=== PATIENT | female | born 1995 | race Caucasian/White ===

== ENCOUNTER 2016-12-25 23:44 | Emergency (ER) | payer SELFPAY ==
--- NOTE | 2016-12-26 03:08 | ED CLINICAL REPORT ---
Clinical Report - Physicians/Mid Levels [facility] [address] [place] [address] 12/25/2016 23:46 Patient: RAJWINDER MANRIQUE Time Seen: 00:26 Dec 26 2016. Arrived- By private vehicle. Historian- patient. CPT: ER phys charges level 3 plus (#[id number]). Abscess complicated I&D (#122121). HISTORY OF PRESENT ILLNESS Chief Complaint: SKIN RASH and BOIL. 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 ( left toe abscess being treated with oral abx for 2 days, getting worse. and 3 small abscess on buttocks). It is described as painful. It has been located on the right buttocks (2 small ones that she drained at home. They are better since being on the antibiotics.). No cause has been identified. Similar symptoms previously: Recent medical care: Not recently seen/assessed. REVIEW OF SYSTEMS No fever, chills, cough, difficulty breathing or enlarged lymph nodes. No chest pain, abdominal pain, joint pain or vomiting. All systems otherwise negative, except as recorded above. PAST HISTORY See nurses notes. Additional Surgeries: no known surgeries. Medications: Sulfamethoxazole-TMP DS Oral (Tablet 800-160 mg) 1 tablet, BID. Cephalexin Oral (Capsule 500 mg) 1 capsule, 4x a day. Allergies: No Known Drug Allergy. SOCIAL HISTORY Heavy tobacco smoker (cigarette)- less than 1 pack per day. ADDITIONAL NOTES The nursing notes have been reviewed. PHYSICAL EXAM Vital Signs: 12/25/2016 23:55 BP: 118/70. HR: 94. RR: 16. O2 saturation: 98%. Temp: 98.3 F. Pain level now: 9/10. Appearance: Alert. Patient in mild distress. Eyes: Pupils equal, round and reactive to light. Conjunctivae and eyelids normal. ENT: Ears normal. Nose normal. Pharynx normal. Neck: Neck supple. CVS: Normal heart rate and rhythm. Heart sounds normal. Normal rhythm. Respiratory: No respiratory distress. Breath sounds normal. Chest nontender. Abdomen: Nontender. Skin: Single small abscess to left buttock (x 3: resolving). No fluctuance or pointing. (left fourth toe with abscess plantar aspect.). Extremities: Extremities nontender. Neuro: Oriented X 3. No motor deficit. No sensory deficit. LABS, X-RAYS, AND EKG Laboratory Tests: Culture, Wound Deep: (SUBHASH: 12/26/2016 03:00) ( MsgRcvd 12/28/2016 10:59) IP SPECIMEN DESCRIPTION: SWAB Test Result Flag Units (Reference) GRAM STAIN, WOUND, DEEP EPITHELIAL CELLS: NONE NO ORGANISMS SEEN: NO ORGANISMS SEEN WHITE BLOOD CELLS: MANY CULTURE, WOUND DEEP, AEROBIC DATE: 12/28/16 PRELIM REPORT: FINAL REPORT -- MRSA GROWTH: SCANT GROWTH -- NSF GROWTH: SCANT GROWTH ID AND SENS TO FOLLOW: NO FURTHER WORKUP AMOXICILLIN/CLAVULANATE AMPICILLIN AMPICILLIN/SULBACTAM CEFAZOLIN CEFTRIAXONE CEPHALOTHIN CIPROFLOXACIN R CLINDAMYCIN S DAPTOMYCIN S ERYTHROMYCIN R GENTAMICIN S LEVOFLOXACIN I LINEZOLID S NITROFURANTOIN OXACILLIN R PENICILLIN TRIMETHOPRIM/SULFAMETHOXAZOLE S VANCOMYCIN S GENTAMICIN SYNERGY SCREEN CULTURE, ANAEROBIC, WOUND DEEP DATE: 12/28/16 NO ANAEROBIC GROWTH AT:: NO ANAEROBES ISOLATED AT 2 DAYS PRELIM REPORT: FINAL REPORT . PROGRESS AND PROCEDURES Incision & Drainage of Abscess: The abscess is located in the left fourth toe(s). The risks of the procedure, benefits and alternatives were explained. Consent was obtained. Local anesthesia provided using 2% lidocaine with bicarb. Skin cleansed with Betadine. The abscess was incised with a #11 surgical blade. A moderate amount of pus was drained. Cavity was irrigated with saline and packed with gauze. Sample obtained for cultures and gram stain. A dressing was applied. Estimated blood loss: 1 mL. Course of Care: Pt requests sedative before trying to I&D the toe. Xanax 0.25 mg po Vancomycin 25 mg /kg IV Pt went to [facility] for prolonged period and came out saying she was itchy. Benadryl 25 mg IV. Better. Patient/family counseled. Disposition: Discharged. Condition: stable and improved. CLINICAL IMPRESSION Single deep abscess to the left foot with incision and drainage. INSTRUCTIONS Protect wound and keep wound area clean. Leave dressing in place until seen in follow-up. (Hot pack abscesses on the buttocks.). Warnings: Further evaluation is necessary. SEDATIVE MEDICATION: You were given sedative medication during your visit. Do not drive or operate dangerous machinery. GENERAL WARNINGS: Return or contact your physician immediately if your condition worsens or changes unexpectedly, if not improving as expected, or if other problems arise. Your Current Medications: CONTINUE TAKING THE FOLLOWING MEDICATIONS: Cephalexin Oral : Capsule 500 mg, 1 capsule 4x a day. Sulfamethoxazole-TMP DS Oral : Tablet 800-160 mg, 1 tablet BID. Follow-up: Follow up with your doctor in two days. Call for the next available appointment. Understanding of the discharge instructions verbalized by patient. (Electronically signed by Barrera Sotomayor MD 12/28/2016 23:34)
--- NOTE | 2016-12-26 03:08 | ED CLINICAL REPORT ---
Clinical Report - Physicians/Mid Levels [facility] [address] [place] [address] 12/25/2016 23:46 Patient: RAJWINDER MANRIQUE Time Seen: 00:26 Dec 26 2016. Arrived- By private vehicle. Historian- patient. CPT: ER phys charges level 3 plus (#[id number]). Abscess complicated I&D (#503102). HISTORY OF PRESENT ILLNESS Chief Complaint: SKIN RASH and BOIL. 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 ( left toe abscess being treated with oral abx for 2 days, getting worse. and 3 small abscess on buttocks). It is described as painful. It has been located on the right buttocks (2 small ones that she drained at home. They are better since being on the antibiotics.). No cause has been identified. Similar symptoms previously: Recent medical care: Not recently seen/assessed. REVIEW OF SYSTEMS No fever, chills, cough, difficulty breathing or enlarged lymph nodes. No chest pain, abdominal pain, joint pain or vomiting. All systems otherwise negative, except as recorded above. PAST HISTORY See nurses notes. Additional Surgeries: no known surgeries. Medications: Sulfamethoxazole-TMP DS Oral (Tablet 800-160 mg) 1 tablet, BID. Cephalexin Oral (Capsule 500 mg) 1 capsule, 4x a day. Allergies: No Known Drug Allergy. SOCIAL HISTORY Heavy tobacco smoker (cigarette)- less than 1 pack per day. ADDITIONAL NOTES The nursing notes have been reviewed. PHYSICAL EXAM Vital Signs: 12/25/2016 23:55 BP: 118/70. HR: 94. RR: 16. O2 saturation: 98%. Temp: 98.3 F. Pain level now: 9/10. Appearance: Alert. Patient in mild distress. Eyes: Pupils equal, round and reactive to light. Conjunctivae and eyelids normal. ENT: Ears normal. Nose normal. Pharynx normal. Neck: Neck supple. CVS: Normal heart rate and rhythm. Heart sounds normal. Normal rhythm. Respiratory: No respiratory distress. Breath sounds normal. Chest nontender. Abdomen: Nontender. Skin: Single small abscess to left buttock (x 3: resolving). No fluctuance or pointing. (left fourth toe with abscess plantar aspect.). Extremities: Extremities nontender. Neuro: Oriented X 3. No motor deficit. No sensory deficit. LABS, X-RAYS, AND EKG Laboratory Tests: Culture, Wound Deep: (SUBHASH: 12/26/2016 03:00) ( MsgRcvd 12/28/2016 10:59) IP SPECIMEN DESCRIPTION: SWAB Test Result Flag Units (Reference) GRAM STAIN, WOUND, DEEP EPITHELIAL CELLS: NONE NO ORGANISMS SEEN: NO ORGANISMS SEEN WHITE BLOOD CELLS: MANY CULTURE, WOUND DEEP, AEROBIC DATE: 12/28/16 PRELIM REPORT: FINAL REPORT -- MRSA GROWTH: SCANT GROWTH -- NSF GROWTH: SCANT GROWTH ID AND SENS TO FOLLOW: NO FURTHER WORKUP AMOXICILLIN/CLAVULANATE AMPICILLIN AMPICILLIN/SULBACTAM CEFAZOLIN CEFTRIAXONE CEPHALOTHIN CIPROFLOXACIN R CLINDAMYCIN S DAPTOMYCIN S ERYTHROMYCIN R GENTAMICIN S LEVOFLOXACIN I LINEZOLID S NITROFURANTOIN OXACILLIN R PENICILLIN TRIMETHOPRIM/SULFAMETHOXAZOLE S VANCOMYCIN S GENTAMICIN SYNERGY SCREEN CULTURE, ANAEROBIC, WOUND DEEP DATE: 12/28/16 NO ANAEROBIC GROWTH AT:: NO ANAEROBES ISOLATED AT 2 DAYS PRELIM REPORT: FINAL REPORT . PROGRESS AND PROCEDURES Incision & Drainage of Abscess: The abscess is located in the left fourth toe(s). The risks of the procedure, benefits and alternatives were explained. Consent was obtained. Local anesthesia provided using 2% lidocaine with bicarb. Skin cleansed with Betadine. The abscess was incised with a #11 surgical blade. A moderate amount of pus was drained. Cavity was irrigated with saline and packed with gauze. Sample obtained for cultures and gram stain. A dressing was applied. Estimated blood loss: 1 mL. Course of Care: Pt requests sedative before trying to I&D the toe. Xanax 0.25 mg po Vancomycin 25 mg /kg IV Pt went to [facility] for prolonged period and came out saying she was itchy. Benadryl 25 mg IV. Better. Patient/family counseled. Disposition: Discharged. Condition: stable and improved. CLINICAL IMPRESSION Single deep abscess to the left foot with incision and drainage. INSTRUCTIONS Protect wound and keep wound area clean. Leave dressing in place until seen in follow-up. (Hot pack abscesses on the buttocks.). Warnings: Further evaluation is necessary. SEDATIVE MEDICATION: You were given sedative medication during your visit. Do not drive or operate dangerous machinery. GENERAL WARNINGS: Return or contact your physician immediately if your condition worsens or changes unexpectedly, if not improving as expected, or if other problems arise. Your Current Medications: CONTINUE TAKING THE FOLLOWING MEDICATIONS: Cephalexin Oral : Capsule 500 mg, 1 capsule 4x a day. Sulfamethoxazole-TMP DS Oral : Tablet 800-160 mg, 1 tablet BID. Follow-up: Follow up with your doctor in two days. Call for the next available appointment. Understanding of the discharge instructions verbalized by patient. (Electronically signed by Barrera Sotomayor MD 12/28/2016 23:34)
--- NOTE | 2016-12-26 03:09 | ED ORDER SUMMARY ---
..... Patient: RAJWINDER MANRIQUE OrderSheet [facility] VisitID: [id number] [address] [place] [address] 21y, F Registration Date/Time: 12/25/2016 ORDER SHEET Weight: 63.5 kg (stated) Allergies: No Known Drug Allergy GENERAL ORDERS: I&D Tray (00:36 12/26/2016 Jojo CRONIN) (0:46 HSoule) (0:56 CBradburn R.N.) Culture, Wound Deep (Foot) (swab) Urgent (03:06 12/26/2016 Jojo CRONIN) (Ack 3:08 AMcQuoid ER Tech1) (3:14 HSoule) MEDICATION ORDERS: Alprazolam PO 0.25 mg (NOW) (00:36 12/26/2016 Jojo CRONIN) (Ack 0:42 CBradburn R.N.) (0:45 Jamel R.N.) IV FLUIDS: IV NS : initial bolus 250 mL (1000 mL/hr), then 125 mL/hr for 2h (NOW); Routine (00:54 12/26/2016 Jojo CRONIN) (1:28 CBradmarlon R.N.) Vancomycin IV 25 mg/kg (NOW) (00:55 12/26/2016 Jojo CRONIN) (1:23 CBradburn R.N.) Benadryl IV 25 mg (NOW) (02:52 12/26/2016 Jojo CRONIN) (Ack 2:53 CBradburn R.N.) (2:53 CBradburn R.N.) ORDER SHEET NOTES: [Electronically signed by Rosemary Oswald R.N. (03:17 12/26/2016)] [Electronically signed by Barrera Sotomayor MD (23:34 12/28/2016)] [Electronically locked/signed by Rosemary Oswald R.N. (03:17 12/26/2016)]
--- NOTE | 2016-12-26 03:09 | ED ORDER SUMMARY ---
..... Patient: RAJWINDER MANRIQUE OrderSheet [facility] VisitID: [id number] [address] [place] [address] 21y, F Registration Date/Time: 12/25/2016 ORDER SHEET Weight: 63.5 kg (stated) Allergies: No Known Drug Allergy GENERAL ORDERS: I&D Tray (00:36 12/26/2016 Jojo CRONIN) (0:46 HSoule) (0:56 CBradburn R.N.) Culture, Wound Deep (Foot) (swab) Urgent (03:06 12/26/2016 Jojo CRONIN) (Ack 3:08 AMcQuoid ER Tech1) (3:14 HSoule) MEDICATION ORDERS: Alprazolam PO 0.25 mg (NOW) (00:36 12/26/2016 Jojo CRONIN) (Ack 0:42 CBradburn R.N.) (0:45 Jamel R.N.) IV FLUIDS: IV NS : initial bolus 250 mL (1000 mL/hr), then 125 mL/hr for 2h (NOW); Routine (00:54 12/26/2016 Jojo CRONIN) (1:28 CBradmarlon R.N.) Vancomycin IV 25 mg/kg (NOW) (00:55 12/26/2016 Jojo CRONIN) (1:23 CBradburn R.N.) Benadryl IV 25 mg (NOW) (02:52 12/26/2016 Jojo CRONIN) (Ack 2:53 CBradburn R.N.) (2:53 CBradburn R.N.) ORDER SHEET NOTES: [Electronically signed by Rosemary Oswald R.N. (03:17 12/26/2016)] [Electronically signed by Barrera Sotomayor MD (23:34 12/28/2016)] [Electronically locked/signed by Rosemary Oswald R.N. (03:17 12/26/2016)]
--- NOTE | 2016-12-26 03:09 | ED NURSING NOTES ---
Clinical Report - Nurses [facility] [address] [place] [address] 12/25/2016 23:46 Patient: RAJWINDER MANRIQUE TRIAGE Triage time 23:55. Acuity: LEVEL 4. Chief Complaint: SKIN LESION. --00:05 Vivien Zamora R.N. 23:55 12/25/16. BP: 118/70. HR: 94 (regular and normal rate). RR: 16. O2 saturation: 98%. Temp: 98.3 F (oral). Pain level now: 04/17. --00:05 Vivien Zamora R.N. Weight: 63.5 kg stated. Height/Length: 68 inches Per Patient. BMI: 21.3. --23:59 Vivien Zamora R.N. Medications Cephalexin Oral (Capsule 500 mg) 1 capsule, 4x a day. --00:01 Vivien Zamora R.N. Sulfamethoxazole-TMP DS Oral (Tablet 800-160 mg) 1 tablet, BID. --00:01 Vivien Zamora R.N. Allergies No Known Drug Allergy. --00:02 Vivien Zamora R.N. History Arrived by private vehicle. Historian: patient. Accompanied by family. Primary physician (elpidio). Location - left buttock and left foot. ( left toe abscess being treated with oral abx for 2 days, getting worse. and 3 small abscess on buttocks). PAST MEDICAL HX: Immunizations: up-to-date. Last normal menstrual period- Dec 10 2016. 3. Para 2. Sexual history - sexually active. No contraception. SOCIAL HX: Light tobacco smoker (cigarette)- less than 1/2 a pack per day. History of drug use. Is a recovering addict. 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 No alcohol use. The patient was exposed to MRSA. ABUSE ASSESSMENT: No report of abuse. SELF HARM ASSESSMENT: A self harm assessment was performed. The patient answered "no" to the question "Have you recently felt down, depressed, or hopeless?", "Have you noticed less interest or pleasure in doing things?", "Do you have thoughts of harming or killing yourself?", "Are you here because you tried to hurt yourself?", "Have you ever tried to hurt yourself before today?", "Have you recently had thoughts about harming or killing others?" and "Do you have any dangerous items in your possession?". FALL RISK ASSESSMENT: Fall risk assessment completed. No fall risk identified. NUTRITIONAL RISK ASSESSMENT: The nutritional risk assessment revealed no deficiencies. FUNCTIONAL ASSESSMENT: Functional assessment: no impairments noted. LEARNING NEEDS ASSESSMENT: The learning needs assessment revealed no barriers. SKIN INTEGRITY ASSESSMENT: Skin integrity risk assessment completed. No skin integrity risk identified. --00:05 Vivien Zamora R.N. PROBLEMS: Migraine Headache. Hepatitis C. --00:02 Vivien Zamora R.N. MRSA Infection. --00:03 Vivien Zamora R.N. ADDITIONAL SURGERIES: no known surgeries. Interventions ID band on patient. --00:05 Vivien Zamora R.N. PHYSICAL ASSESSMENT Ambulatory to room. GENERAL / NEURO / PSYCH: Alert. Appears in pain. Oriented X 4. HEENT: Pupils equal, round and reactive to light. Mucous membranes are pink. RESPIRATORY: Respirations not labored. Breath sounds within normal limits. CVS: Capillary refill less than 2 seconds. Pulses within normal limits. GI / : Abdomen nontender. SKIN: Skin is warm and dry. Blister with erythema, tenderness and increased warmth on the left 4th toe. Skin tenderness present. Swelling present. Erythema present. --00:06 Vivien Zamora R.N. NURSING PROGRESS NOTES Two patient identifiers checked. Call light placed in reach. Side rails up x 1. Bed placed in lowest position. Brakes of bed on. --00:07 Vivien Zamora R.N. Patient ready for evaluation- chart flagged. --00:07 Vivien Zamora R.N. 00:45 12/26/2016 Alprazolam PO Tablets 0.25 mg given. Allergies verified, confirmed 5 rights and sedative warning given to the patient. --00:45 Vivien Zamora R.N. 01:17 12/26/2016 Site #1 started via IV in the right wrist with an 20g angiocath, with aseptic technique and good blood return; one attempt. Saline lock flushed with 10 mL saline. --01:19 Vivien Zamora R.N. 01:19 12/26/2016 Started 1.5 gm of Vancomycin IVPB in bag #1 500 mL; at 353 mL/hr over 1.5 hour(s) via site #1 via IV pump. Allergies verified and confirmed 5 rights. IV patency established. IV site checked: no pain, redness, or swelling. IV flushed thoroughly pre- and post-medication administration. --01:23 Vivien Zamora R.N. 01:19 12/26/2016 Started bag #1 1000 mL IV Fluids IV NS (Saline); bolus of 250 mL over 15 minute(s) via site #1 via IV pump. Allergies verified and confirmed 5 rights. IV patency established. IV site checked: no pain, redness, or swelling. IV flushed thoroughly pre- and post-medication administration. --01:28 Vivien Zamora R.N. 01:39 12/26/2016 IV Fluids IV NS via IV site #1 Rate Changed: bag #1 decreased to 150 mL/hr via IV pump. IV patency established. IV site checked: no pain, redness, or swelling. IV flushed thoroughly. Confirmed 5 Rights. --01:39 Esther Patel ( I&D setup complete, notified, IVF and abx running). --02:52 Vivien Zamora R.N. 02:53 12/26/2016 Benadryl (DiphenhydrAMINE HCl) IVP 25 mg given over 1 minute(s) via site #1. Allergies verified, confirmed 5 rights and sedative warning given to the patient. IV patency established. IV site checked: no pain, redness, or swelling. IV flushed thoroughly pre- and post-medication administration. IVP given by RN. --02:53 Vivien Zamora R.N. 02:53 12/26/2016 Vancomycin IVPB Discontinued: bag #1 completed. Total amount infused: 500 mL. IV patency established. IV site checked: no pain, redness, or swelling. IV flushed thoroughly. --02:53 Vivien Zamora R.N. ( Patient wound cleansed and covered with bandage.). --03:12 Esther Patel 03:16 12/26/2016 IV Fluids IV NS Discontinued: STOPPED upon discharge. Total amount infused: 500 mL. IV patency established. IV site checked: no pain, redness, or swelling. IV flushed thoroughly. --03:16 Jayla Kay DISPOSITION / DISCHARGE 03:16 12/26/2016 Site #1 removed upon discharge. Catheter intact. Bandaid applied. --03:16 Jayla Kay Departure time: 03:17. Condition at departure: improved. No learning barriers present. Discharge instructions provided and reviewed with the patient. Patient verbalized understanding. Written instructions provided in Ivorian. No warning instructions, medication instructions, treatment instructions, referrals given to the patient or diet instructions. No activity restrictions, follow up contact number given or stop smoking instructions. No work note given. The patient was discharged by the physician. She was discharged home. She left the Emergency Department ambulatory and via private vehicle. [employer] driving. FALL RISK ASSESSMENT: Fall risk assessment completed. No fall risk identified. --03:17 Jayla Kay 03:16 12/26/16. BP: 121/86. HR: 87. RR: 16. O2 saturation: 99%. Temp: deferred. Pain level now: 0/10. --03:17 Jayla Kay Locked/Released at 12/26/2016 3:17 by Jayla Kay
--- NOTE | 2016-12-28 23:34 | ED MED RECONCILIATION SUMMARY ---
Patient: RAJWINDER MANRIQUE Medication Reconciliation Report [facility] VisitID: [id number] [address] [place] [address] 21y, F Registration Date/Time: 12/25/2016 Weight: 63.5 kg Height/Length: 68 in. BMI: 21.3 ALLERGIES: No Known Drug Allergy The patient's Home Medications are listed below: CONTINUE TAKING THE FOLLOWING MEDICATIONS: Cephalexin Oral (500 mg) 1 capsule, 4x a day Sulfamethoxazole-TMP DS Oral (800-160 mg) 1 tablet, BID The source(s) of the original Home Medication information: Not obtained. The following Medications were given to the patient in the Emergency Department: Alprazolam [PO] PO 0.25 mg, administered: 12/26/2016 12:45:00 AM Vancomycin [IVPB] IVPB bolus 0, then 1.5 gm 353 mL/hr, administered: 12/26/2016 1:19:00 AM IV NS IV Fluids bolus 250 mL over 15 minute(s), administered: 12/26/2016 1:19:00 AM Benadryl [IVP] IVP 25 mg, administered: 12/26/2016 2:53:00 AM The following Medications were prescribed to the patient: None.
--- NOTE | 2016-12-28 23:34 | ED MAR SUMMARY ---
..... Medication Administration Record [facility] [address] [place] [address] Patient: RAJWINDER MANRIQUE Visit ID: [id number] 21y, F Weight: 63.5 kg Height/Length: 68 in BMI: 21.3 ALLERGIES: No Known Drug Allergy Given 00:45 12/26/2016 Vivien Zamora R.N. Medication Administered: ALPRAZOLAM [PO], Dose: 0.25 mg Tablets PO. Medication Ordered: Alprazolam PO 0.25 mg (NOW). Start 01:19 12/26/2016 Vivien Zamora R.N., Stop 03:16 12/26/2016 Jayla Kay Medication Administered: IV NS (SALINE), Dose: IV Fluids, Bolus: 250 mL over 15 minute(s), Dispensed: 1000 mL bag, Site: #1 right wrist. Medication Ordered: IV NS : initial bolus 250 mL (1000 mL/hr), then 125 mL/hr for 2h (NOW); Routine. Start 01:12/26/2016 Vivien Zamora R.N., Stop 02:53 12/26/2016 Vivien Zamora R.N. Medication Administered: VANCOMYCIN [IVPB], Dose: 1.5 gm IVPB over 1.5 hour(s), Rate: 353 mL/hr, Dispensed: 500 mL bag, Site: #1 right wrist. Medication Ordered: Vancomycin IV 25 mg/kg (NOW). Given 02:53 12/26/2016 Vivien Zamora R.N. Medication Administered: BENADRYL [IVP] (DIPHENHYDRAMINE HCL), Dose: 25 mg IVP over 1 minute(s), Site: #1 right wrist. Medication Ordered: Benadryl IV 25 mg (NOW).
--- NOTE | 2016-12-28 23:34 | ED MAR SUMMARY ---
..... Medication Administration Record [facility] [address] [place] [address] Patient: RAJWINDER MANRIQUE Visit ID: [id number] 21y, F Weight: 63.5 kg Height/Length: 68 in BMI: 21.3 ALLERGIES: No Known Drug Allergy Given 00:45 12/26/2016 Vivien Zamora R.N. Medication Administered: ALPRAZOLAM [PO], Dose: 0.25 mg Tablets PO. Medication Ordered: Alprazolam PO 0.25 mg (NOW). Start 01:19 12/26/2016 Vivien Zamora R.N., Stop 03:16 12/26/2016 Jayla Kay Medication Administered: IV NS (SALINE), Dose: IV Fluids, Bolus: 250 mL over 15 minute(s), Dispensed: 1000 mL bag, Site: #1 right wrist. Medication Ordered: IV NS : initial bolus 250 mL (1000 mL/hr), then 125 mL/hr for 2h (NOW); Routine. Start 01:12/26/2016 Vivien Zamora R.N., Stop 02:53 12/26/2016 Vivien Zamora R.N. Medication Administered: VANCOMYCIN [IVPB], Dose: 1.5 gm IVPB over 1.5 hour(s), Rate: 353 mL/hr, Dispensed: 500 mL bag, Site: #1 right wrist. Medication Ordered: Vancomycin IV 25 mg/kg (NOW). Given 02:53 12/26/2016 Vivien Zamora R.N. Medication Administered: BENADRYL [IVP] (DIPHENHYDRAMINE HCL), Dose: 25 mg IVP over 1 minute(s), Site: #1 right wrist. Medication Ordered: Benadryl IV 25 mg (NOW).
--- NOTE | 2016-12-28 23:34 | ED DISCHARGE INSTRUCTIONS ---
Patient: RAJWINDER MANRIQUE General Instructions [facility] VisitID: [id number] [place] [address] 21y, F Registration Date/Time: 12/25/2016 Single deep abscess to the left foot with incision and drainage. INSTRUCTIONS Protect wound and keep wound area clean. Leave dressing in place until seen in follow-up. (Hot pack abscesses on the buttocks.). Warnings: Further evaluation is necessary. SEDATIVE MEDICATION: You were given sedative medication during your visit. Do not drive or operate dangerous machinery. GENERAL WARNINGS: Return or contact your physician immediately if your condition worsens or changes unexpectedly, if not improving as expected, or if other problems arise. Your Current Medications: CONTINUE TAKING THE FOLLOWING MEDICATIONS: Cephalexin Oral : Capsule 500 mg, 1 capsule 4x a day. Sulfamethoxazole-TMP DS Oral : Tablet 800-160 mg, 1 tablet BID. Follow-up: Follow up with your doctor in two days. Call for the next available appointment. Understanding of the discharge instructions verbalized by patient. ADDITIONAL INFORMATION Abscess [Incision & Drainage] An abscess (sometimes called a boil) occurs when bacteria get trapped under the skin and begin to grow. Pus forms inside the abscess as the body responds to the bacteria. An abscess can occur with an insect bite, ingrown hair, blocked oil gland, pimple, cyst, or puncture wound. Treatment of your abscess has required an incision to drain the pus. If the abscess pocket was large, a gauze packing may have been inserted. This will need to be removed and possibly replaced on your next visit. Antibiotics are not required in the treatment of a simple abscess, unless the infection is spreading into the skin around the wound (known as cellulitis). Healing of the wound will take about one to two weeks depending on the size of the abscess. Healthy tissue will grow from the bottom and sides of the opening until it seals over. Home Care: The wound may drain for the first two days. Cover the wound with a clean dry dressing. If the dressing becomes soaked with blood or pus, change it. If a gauze packing was placed inside the abscess cavity, you may be advised to remove it yourself. You may do this in the shower. Once the packing is removed, you should wash the area in the shower or bath 3 to 4 times a day, until the skin opening has closed. If you were prescribed antibiotics, take them as directed until they are all gone. You may use acetaminophen (Tylenol) or ibuprofen (Motrin, Advil) to control pain, unless another pain medicine was prescribed. [ NOTE: If you have liver disease or ever had a stomach ulcer, talk with your doctor before using these medicines.] Follow Up with your doctor as advised by our staff. If a gauze packing was inserted in your wound, it should be removed in 1-2 days. Check your wound every day for the signs of worsening infection listed below. Get Prompt Medical Attention if any of the following occur: Increasing redness or swelling Red streaks in the skin leading away from the wound Increasing local pain or swelling Continued pus draining from the wound two days after treatment Fever of 100.4F (38C) or higher, or as directed by your healthcare provider Staph Infection (MRSA) "Staph" is the short name for the common bacteria called "staphylococcus aureus". Staph bacteria are often present on the skin without causing an infection. If it gets under the skin an infection occurs. This causes redness, tenderness, swelling and sometimes fluid drainage. MRSA stands for "Methicillin-Resistant Staph Aureus". Unlike a common staph infection, MRSA bacteria are resistant to the usual antibiotics and harder to treat. Also, MRSA is more toxic than common staph bacteria. It can spread quickly throughout the body and cause a life-threatening illness. MRSA is spread to others by direct physical contact with the bacteria. MRSA can also be transmitted from items contaminated by a person who has the bacteria, such as bandages, towels, bed sheets, or sports equipment. It is not spread through the air. Once you have a MRSA skin infection, you are at risk of having it recur in the future. If MRSA infection is suspected, the doctor may take a wound culture to confirm the diagnosis. Any abscess will be drained. One or sometimes two antibiotics that work against MRSA will be prescribed. Home Care: 1) Take any antibiotics prescribed exactly as directed until they are gone. 2) Follow the same washing procedures as outlined for Household Members below. 3) Keep draining wounds covered with clean, dry bandages. Change dressings as they become soiled. 4) You and those in contact with you should wash their hands frequently with soap and warm water or use an alcohol-based hand plating engineer. Do this after each time you change the bandage or touch the wound. 5) Avoid sharing personal items such as towels, washcloths, razors, clothing, or uniforms. Wash soiled sheets, towels or clothes in hot water with laundry detergent. Use an automatic clothes dryer set on high to kill any remaining bacteria. 6) Remove any artificial nails and nail turkish. 7) If you use a gym, wipe down equipment before and after each use. Treatment Of Household Members If you have been diagnosed with possible MRSA infection, those living with you are at higher risk of carrying the bacteria on their skin or in their nose, even if there is no sign of infection. Bacteria must be removed from the skin of all household members (including you) at the same time, so that it is not passed back and forth. Advise them to remove the bacteria as follows: Wash your whole body (scalp to toes) daily for five days with Hibiclens (chlorhexidine). Scrub fingernails with a brush for one minute twice a day. If any skin infections are present (boils, abscess, infected cut) these must be treated by a doctor. Washing alone will not treat a MRSA infection. Clean counter tops and children's toys; do not share personal items such as toothbrush and razors. It is okay to share glasses, plates, utensils. If antibiotic ointment was prescribed use it as directed. Follow Up with your doctor or as advised by our staff. If a wound culture was taken, call as directed in two days to obtain the results. If the culture result is positive for MRSA, tell medical personnel in the future that you were treated for this type of infection. Get Prompt Medical Attention if any of the following occur: -- Increasing redness, swelling or pain -- Red streaks in the skin around the wound -- Weakness or dizziness -- New appearance of pus or drainage from the wound -- New fever over 100.4 F (38.0 C) You have been given the following additional information: Abscess, Incision And Drainage MRSA Skin Infection, Suspected Or Confirmed (Electronically signed by Barrera Sotomayor MD 12/28/2016 23:34)
--- NOTE | 2016-12-28 23:34 | ED MED RECONCILIATION SUMMARY ---
Patient: RAJWINDER MANRIQUE Medication Reconciliation Report [facility] VisitID: [id number] [address] [place] [address] 21y, F Registration Date/Time: 12/25/2016 Weight: 63.5 kg Height/Length: 68 in. BMI: 21.3 ALLERGIES: No Known Drug Allergy The patient's Home Medications are listed below: CONTINUE TAKING THE FOLLOWING MEDICATIONS: Cephalexin Oral (500 mg) 1 capsule, 4x a day Sulfamethoxazole-TMP DS Oral (800-160 mg) 1 tablet, BID The source(s) of the original Home Medication information: Not obtained. The following Medications were given to the patient in the Emergency Department: Alprazolam [PO] PO 0.25 mg, administered: 12/26/2016 12:45:00 AM Vancomycin [IVPB] IVPB bolus 0, then 1.5 gm 353 mL/hr, administered: 12/26/2016 1:19:00 AM IV NS IV Fluids bolus 250 mL over 15 minute(s), administered: 12/26/2016 1:19:00 AM Benadryl [IVP] IVP 25 mg, administered: 12/26/2016 2:53:00 AM The following Medications were prescribed to the patient: None.
== END 2016-12-26 03:15 | disposition home or self-care (01) ==
LOC: ED SRH 23:44
DX: L02.612 Cutaneous abscess of left foot (principal); B95.62 Methicillin resistant Staphylococcus aureus infection as the cause of diseases classified elsewhere; Z79.899 Other long term (current) drug therapy; Z79.2 Long term (current) use of antibiotics; Z72.0 Tobacco use
CPT/HCPCS: 90070; 90131; 90309; 90470; 91672